=== PATIENT | female | born 1990 | race Caucasian/White ===

== ENCOUNTER 2016-12-13 21:36 | Emergency (ER) | payer OTHER ==
[2016-12-14 01:57] LABS: HEMOGLOBIN 14.2 gm/dl (12.3-15.3); RED BLOOD COUNT 4.75 M/UL (4.00-5.10); WHITE BLOOD COUNT 10.1 K/UL (4.5-11.0)
[2016-12-14 02:14] LABS: BUN/CREATININE RATIO 13 (0-10)
== END 2016-12-14 03:22 | disposition home or self-care (01) ==
LOC: ER1 21:36
PROVIDERS: Family Medicine
DX: N93.9 Abnormal uterine and vaginal bleeding, unspecified (principal); F17.200 Nicotine dependence, unspecified, uncomplicated
CPT/HCPCS: 36415; 80053; 81001; 82150; 83690; 84703; 85025; 87086; 99284